=== PATIENT | female | born 1945 | race Caucasian/White ===

== ENCOUNTER 2020-05-05 09:05 | Day surgery (SDC) | payer MEDICARE, OTHER ==
[~2020-05-05] VITALS: Ht 165.1 cm; Wt 81.8 kg
[~2020-05-05 09:05] MED LIST: ABAT250V; AMPDEX10CR PO; ASPI81CH PO; Advil200 M1 PO; DEXT10ER PO; DEXT5ER PO; Estrace Vagin42.5 GM VAG; Glucosamine Co1 EAC1 PO; MECL25 PO; MELO7.5 PO; NAPR220 PO; Omeprazole20 M1 PO; PROZAC20 MG PO; Prozac20 MG PO; THYROID30 MG PO; TURMERIC500 M2 PO; VITAMIN D325 MC3 PO; [UNRECOGNIZED DRUG - OTHER] PO
--- NOTE | 2020-05-05 10:54 | NUR ---
History, Chart, Medications and Allergies reviewed before start of procedure. Lungs clear T/O to Auscultation. Patient confirms NPO status and agrees with scheduled surgery. Pre-Op teaching done. Pt verbalizes understanding. Patient reports completing Chlorhexadine shower X2 prior to admission to hospital. 2 IV ATTEMPTS BY MAGDALENO, 3 ATTEMPTS BY RADHA PERES. PT WAS TEARFUL WITH FINAL IV PLACEMENT. PT VOIDED WHEN ENTERED THE DEPARTMENT, DECLINED TO ATTEMPT AGAIN STATES "I WONT HAVE TO GO"
--- NOTE | 2020-05-05 17:49 | NUR ---
SHIFT SUMMARY PT A&OX4, VSS, S/P R AKSHAT, DRESSING CDI, POLAR SANDIP ON, WIGGLES TOES/MOVES FEET. PAIN MANAGED WITH TYLENOL AND TORADOL. LINDSEY PO, DENIES N&V. WILL REPORT TO ONCOMING NOC RN.
--- NOTE | 2020-05-06 04:31 | NUR ---
SHIFT SUMMARY POD#1. AAOX4. DISCOMFORT CONTROLLED WITH SCHEDULED TORADOL/TYLENOL + ROXICODONE Q4H. NO NAUSEA/EMESIS. RIGHT HIP INCISION WITH GAUZE + PRESSURE TAPE C/D/I. PPP, DENIES N/T, MOVES TOES WELL BLE. PT UP TO RESTROOM, SBA WITH FWW, TOLERATES WELL. PT RESTING IN 1-2 HR BLOCKS T/O NIGHT, REPORTING "I JUST CANT SLEEP HERE." CPAP IN PLACE T/O NIGHT AT HOME SETTINGS. PT SITTING UP IN BED AT THIS TIME WITH CALL LIGHT IN REACH. WILL ENCOURAGE MORE REST + UP TO CHAIR FOR BREAKFAST.
[2020-05-06 05:11] LABS: BASOPHILS ABSOLUTE AUTO 0.04 K/mm3 (0.00-0.23); BASOPHILS PERCENT AUTO 0 % (0-2); EOSINOPHILS PERCENT AUTO 0 % (0-6); Hemoglobin 13.2 g/dL (11.5-16.0); IMMATURE GRAN ABSOLUTE AUTO 0.05 K/mm3 (0.00-0.10); IMMATURE GRAN PERCENT AUTO 0 % (0-1); LYMPHOCYTES ABSOLUTE AUTO 1.07 K/mm3 (0.84-5.20); LYMPHOCYTES PERCENT AUTO 8 % (21-46); MONOCYTES ABSOLUTE AUTO 1.28 K/mm3 (0.16-1.47); MONOCYTES PERCENT AUTO 10 % (4-13); Mean Corpuscular HGB 32.4 pg (26.0-34.0); Mean Corpuscular HGB Conc 33.8 g/dL (31.5-36.5); Mean Corpuscular Volume 96 fL (80-100); Mean Platelet Volume 10.6 fL (9.1-12.4); NEUTROPHILS ABSOLUTE AUTO 10.53 K/mm3 (1.96-9.15); NEUTROPHILS PERCENT AUTO 81 % (41-73); Platelet Count 221 K/mm3 (150-400); RDW Coefficient Variation 12.4 % (11.7-14.2); RDW Standard Deviation 43.2 fL (35.1-46.3); Red Blood Cell Count 4.07 M/mm3 (3.80-5.20); White Blood Cell Count 12.97 K/mm3 (4.00-11.30)
[2020-05-06 05:29] LABS: Anion Gap 6 mmol/L (6-16); Blood Urea Nitrogen 17 mg/dL (8-24); Bun/Creatinine Ratio 22.2 (12.0-20.0); CO2, Blood 28 mmol/L (21-32); Calcium, Blood 8.5 mg/dL (8.5-10.1); Chloride, Blood 106 mmol/L (98-108); Creatinine, Blood 0.77 mg/dL (0.40-1.00); Glomerular Filtration Rate >60 (60-); Glucose, Blood 150 mg/dL (70-99); Magnesium, Blood 2.3 mg/dL (1.6-2.4); Potassium, Blood 3.9 mmol/L (3.5-5.5); Sodium, Blood 140 mmol/L (136-145)
--- NOTE | 2020-05-06 14:54 | NUR ---
DISCHARGE PT DISCHARGED HOME FROM UNIT AT APROX 1454. PT GIVEN WRITTEN AND VERBAL DISCHARGE INSTRUCTIONS AND VERBALIZED UNDERSTANDING. STATES SHE ALREADY HAS PAIN MEDICATION AT HOME GIVEN TO HER PRIOR TO SURGERY. IV REMOVED. WHEELCHAIR TO CAR.
--- NOTE | 2020-05-06 16:00 | NUR ---
DISCHARGE SUMMARY PT A&OX4, VSS, LEFT FLOOR VIA WC WITH RN TO GO HOME WITH BROTHER, WITH ALL PERSONAL POSSESSIONS INCLUDING AQUACEL, POLAR SADNIP, DC INSTRUCTIONS. PT REP SCRIPTS FILLED AND AT HOME. DC INSTRUCTIONS PROVIDED. PT REP UNDERSTANDING THOSE INSTRUCTIONS. IV DC'D.
== END 2020-05-06 14:52 | disposition home or self-care (01) ==
LOC: ORSCMMR 09:05 → SURS 10:39 → ORSCMMR 10:39 → ORD 11:30 → SURS 14:14 → ORSCMMR 05-06 14:52
PROVIDERS: Orthopaedic Surgery
PROC: 0SR90JA Replacement of Right Hip Joint with Synthetic Substitute, Uncemented, Open Approach (ICD-10-PCS; principal; 2020-05-05 11:30)
PROC: 8E0YXBZ Computer Assisted Procedure of Lower Extremity (ICD-10-PCS; principal; 2020-05-05 11:30)
DX: M16.11 Unilateral primary osteoarthritis, right hip (principal); Z79.899 Other long term (current) drug therapy
CPT/HCPCS: 36415; 72170; 80048; 83735; 85025; 88300; 97110; 97116; 97162; 97165; 97530; 97535; A9270; C1713; C1776; J0171; J0690; J0735; J1100; J1885; J2250; J2405; J2704; J2710; J2795; J3010; J7120

== ENCOUNTER 2020-11-10 09:02 | Day surgery (SDC) | payer MEDICARE, OTHER ==
[~2020-11-10] VITALS: Ht 167.6 cm; Wt 83.4 kg
[~2020-11-10 09:02] MED LIST changes: +GLUCOSAMINE COMPLEX PO; -Glucosamine Co1 EAC1 PO; +VITAMIN D310 MC4 PO; +[UNRECOGNIZED DRUG - OTHER] PO
--- NOTE | 2020-11-10 10:15 | NUR ---
Ambulatory in Day Surgery History, Chart, Medications and Allergies reviewed before start of procedure.Lungs clear T/O to Auscultation. Pre-Op teaching done. Pt verbalizes understanding. Patient confirms NPO status and agrees with scheduled surgery.
--- NOTE | 2020-11-10 13:40 | NUR ---
pt arrived to room 216 from pacu s/p l total hip pt has bulky dressing c/d/i to hip pt can wiggle toes but reports numbness in the hip no pain at this time pt has occ dry cough stated she is trying to cough up some stuff is/tcdb given with return demonstration pt oriented to room and layout
--- NOTE | 2020-11-10 15:37 | NUR ---
pt having more sensation pain up to 3/10 meds given also med pt with her home meds that she missed this am
--- NOTE | 2020-11-10 19:00 | NUR ---
assisted pt to bathroom to void and back to bed with fww po pain meds given pt doing well
[2020-11-11 05:04] LABS: BASOPHILS ABSOLUTE AUTO 0.03 K/mm3 (0.00-0.23); BASOPHILS PERCENT AUTO 0 % (0-2); EOSINOPHILS ABSOLUTE AUTO 0.27 K/mm3 (0.00-0.68); EOSINOPHILS PERCENT AUTO 4 % (0-6); Hematocrit 34.3 % (33.0-51.0); Hemoglobin 11.1 g/dL (11.5-16.0); IMMATURE GRAN ABSOLUTE AUTO 0.03 K/mm3 (0.00-0.10); IMMATURE GRAN PERCENT AUTO 0 % (0-1); LYMPHOCYTES ABSOLUTE AUTO 0.92 K/mm3 (0.84-5.20); LYMPHOCYTES PERCENT AUTO 13 % (21-46); MONOCYTES ABSOLUTE AUTO 0.71 K/mm3 (0.16-1.47); MONOCYTES PERCENT AUTO 10 % (4-13); Mean Corpuscular HGB 28.8 pg (26.0-34.0); Mean Corpuscular HGB Conc 32.4 g/dL (31.5-36.5); Mean Corpuscular Volume 89 fL (80-100); Mean Platelet Volume 10.5 fL (9.1-12.4); NEUTROPHILS ABSOLUTE AUTO 5.32 K/mm3 (1.96-9.15); NEUTROPHILS PERCENT AUTO 73 % (41-73); Platelet Count 188 K/mm3 (150-400); RDW Coefficient Variation 14.4 % (11.7-14.2); RDW Standard Deviation 46.6 fL (35.1-46.3); Red Blood Cell Count 3.86 M/mm3 (3.80-5.20); White Blood Cell Count 7.28 K/mm3 (4.00-11.30)
[2020-11-11 05:37] LABS: Anion Gap 4 mmol/L (6-16); Blood Urea Nitrogen 15 mg/dL (8-24); Bun/Creatinine Ratio 16.3 (12.0-20.0); CO2, Blood 26 mmol/L (21-32); Calcium, Blood 8.1 mg/dL (8.5-10.1); Chloride, Blood 108 mmol/L (98-108); Creatinine, Blood 0.92 mg/dL (0.40-1.00); Glomerular Filtration Rate >60 (60-); Glucose, Blood 116 mg/dL (70-99); Magnesium, Blood 1.9 mg/dL (1.6-2.4); Potassium, Blood 3.7 mmol/L (3.5-5.5); Sodium, Blood 138 mmol/L (136-145)
--- NOTE | 2020-11-11 06:09 | NUR ---
POD 1 S/P L AKSHAT. PT VSS T/O NIGHT. DRESSINGS CDI. PAIN MGD PER EMAR W/REP RELIEF. CAP REFILL AND PULSES WNL, PT DENIED N/T. PT LINDSEY REG PO, IS VOIDING URINE W/O DIFFICULTY. PT UP PPB W/FWW+SBA, AMB IN HALLS X1, AND UP TO BATHROOM SEVERAL TIMES DURING NIGHT, LINDSEY AMBULATION WELL. PLAN TO MOBILIZE W/PT AND D/C HOME WHEN CLEARED.
[2020-11-11] MEDS ORDERED: ASPIR 8181 M1 PO (08:27)
[2020-11-11] MEDS ORDERED: Percocet 5-3251 EACH PO (08:28)
--- NOTE | 2020-11-11 13:57 | NUR ---
1240 DISCHARGED TO HOME WITH BROTHER. PT VERBALIZES PAIN IS CONTROLLED. PT LINDSEY PO FOOD AND FLUIDS. AMBULATING IN [facility] WITH WALKER
== END 2020-11-11 12:40 | disposition home or self-care (01) ==
LOC: ORSCMMR 09:02 → SURS 09:02 → ORSCMMR 10:45 → ORD 10:45 → ORSCMMR 13:45 → SURS 14:00 → ORSCMMR 11-11 12:40
PROVIDERS: Orthopaedic Surgery
PROC: 8E0YXBZ Computer Assisted Procedure of Lower Extremity (ICD-10-PCS; principal; 2020-11-10 10:45)
PROC: 0SRB0JA Replacement of Left Hip Joint with Synthetic Substitute, Uncemented, Open Approach (ICD-10-PCS; principal; 2020-11-10 10:45)
DX: M16.12 Unilateral primary osteoarthritis, left hip (principal); E78.5 Hyperlipidemia, unspecified; G47.33 Obstructive sleep apnea (adult) (pediatric); E03.9 Hypothyroidism, unspecified; G40.909 Epilepsy, unspecified, not intractable, without status epilepticus; K21.9 Gastro-esophageal reflux disease without esophagitis; G47.411 Narcolepsy with cataplexy; Z79.899 Other long term (current) drug therapy
CPT/HCPCS: 36415; 72170; 80048; 83735; 85025; 97110; 97116; 97162; 97165; 97530; 97535; A9270; C1713; C1776; J0171; J0690; J0735; J1885; J2370; J2704; J2795; J3010; J3370; J7120

== ENCOUNTER → 2021-10-20 | Outpatient (CLI) | payer MEDICARE, OTHER ==
[~2021-10-20] MED LIST changes: +ASPIR 8181 M1 PO; +Percocet 5-3251 EACH PO
== END | disposition home or self-care (01) ==
LOC: LAB SHORT 12:00
DX: A44.9 Bartonellosis, unspecified (principal); D22.62 Melanocytic nevi of left upper limb, including shoulder; D22.61 Melanocytic nevi of right upper limb, including shoulder; D22.39 Melanocytic nevi of other parts of face; D22.5 Melanocytic nevi of trunk; L81.4 Other melanin hyperpigmentation; L82.1 Other seborrheic keratosis; L82.0 Inflamed seborrheic keratosis; L29.8 Other pruritus; L71.8 Other rosacea
CPT/HCPCS: 87070; 87205

== ENCOUNTER 2024-06-17 09:58 | Day surgery (SDC) | payer MEDICARE, OTHER ==
[~2024-06-17] VITALS: Ht 167.6 cm; Wt 82.4 kg
[~2024-06-17 09:58] MED LIST changes: +Lactated Ringer's 1,000 ML IV ONE; +propofoL 50 ML IV ONE
[2024-06-17] MEDS ORDERED: LEVSOD25 (10:22)
[2024-06-17] MEDS ORDERED: Lactated Ringer's 1,000 ML IV ONE (10:50)
[2024-06-17 11:35] VITALS: BP 128/72
== END 2024-06-17 11:36 | disposition home or self-care (01) ==
LOC: ORSCSDS 09:58
PROVIDERS: Surgery
PROC: 0DB68ZX Excision of Stomach, Via Natural or Artificial Opening Endoscopic, Diagnostic (ICD-10-PCS; principal; 2024-06-17 11:30)
DX: K21.9 Gastro-esophageal reflux disease without esophagitis (principal); K44.9 Diaphragmatic hernia without obstruction or gangrene; E03.9 Hypothyroidism, unspecified; G47.33 Obstructive sleep apnea (adult) (pediatric); E78.00 Pure hypercholesterolemia, unspecified; Z79.899 Other long term (current) drug therapy
CPT/HCPCS: 88305; 88342; J2704; J7120